=== PATIENT | male | born 1995 | race Two or more races ===

== ENCOUNTER 2021-09-09 10:59 | Emergency (ER) | payer OTHER ==
[~2021-09-09] VITALS: Ht 182.9 cm; Wt 68.0 kg
[2021-09-09 11:26] VITALS: BP 136/74
[2021-09-09] MEDS ORDERED: METH750T22 PO (13:10)
[2021-09-09] MEDS ORDERED: IBUP800T27 PO (13:10)
== END 2021-09-09 13:26 | disposition home or self-care (01) ==
LOC: ER 10:59
DX: S39.012A Strain of muscle, fascia and tendon of lower back, initial encounter (principal); Q76.49 Other congenital malformations of spine, not associated with scoliosis; F17.210 Nicotine dependence, cigarettes, uncomplicated; Z79.1 Long term (current) use of non-steroidal anti-inflammatories (NSAID); Z79.899 Other long term (current) drug therapy; X58.XXXA Exposure to other specified factors, initial encounter; Y93.89 Activity, other specified; Y92.89 Other specified places as the place of occurrence of the external cause; Y99.8 Other external cause status
CPT/HCPCS: 72100